=== PATIENT | female | born 1985 | race Caucasian/White ===

== ENCOUNTER 2019-03-28 01:22 | Inpatient (IN) | payer BC, OTHER ==
[2019-03-28] MEDS ORDERED: Lactated Ringers 1000 ML Bag* 1,000 ML IV ONE (02:04)
[2019-03-28] MEDS ORDERED: Buffered Lidocaine 1% SYRIN* 1 ML/SYRINGE INTRADERM ONE (02:04)
--- NOTE | 2019-03-28 02:12 | HP ---
General Information - Reason for Visit active labor - General Information Maternal Age: 31 Grav: 3 Para: 0 SAB: 2 IEA: 0 Estimated Due Date: 04/07/19 Determined By: LMP Gestational Age in Weeks/Days: 38 4/7 Maternal Blood Type and Rh: A Positive - Results this Serology/RPR Result: Non-Reactive Rubella Result: Immune HBsAg Result: Negative HIV Result: Negative GBS Culture Result: Positive Past Medical History Delivery History: Hx Uncomplicated Vaginal Delivery Pertinent Past Medical History: See Records - migraine, allergies, Lyme disease Pertinent Past Surgical History: See Records - D&C Pertinent Family History: Non-Contributory - Antepartal Records Antepartal Records: Reviewed, Uncomplicated Review of Systems Constitutional: Uncomfortable CV Complaint: No Respiratory: Shortness of Breath: No Gastrointestinal: Normal Bowel Movement, Nausea Genitourinary: No Dysuria, No Bleeding, No Leaking Fluid Musculoskeletal: No Epigastric Pain, Contractions Neurological: No Headache, No Visual Changes Movement: Normal Exam Allergies/Adverse Reactions: Allergies No Known Allergies Allergy (Verified 03/28/19 01:39) T-98.2, P-88, R-19, )2- 100%, BP- 118/63 - Measurements Height: 5 ft 7 in Weight: 86.183 kg Body Mass Index (BMI): 29.7 Pre- Weight: 61.235 kg - Exam Breast: Breast Exam Deferred CVA: No CVA Tenderness Extremities: No Edema Heart: Normal Rhythm/Heart Sounds HEENT: No Significant Findings Lungs: Clear Bilaterally Rectal: Rectal Exam Deferred Reflexes: DTR 2+ Thyroid: No Thyromegaly - Abdominal Exam Abdomen Exam: Non-Tender, Fundal Height Consistent with Dates - Ultrasound/Biophysical Profile Ultrasound Status: Not Done Targeted Exam Findings See L&D Outpatient Visit Provider Note for Findings: N/A Estimated Weight: 7.5# Cervical Exam: 5cm, 6cm - 5-6 cm per Sherly WILKS Presenting Part: Vertex Membrane Status: Intact Bleeding/Discharge: None EFM Findings - External Monitor Findings Baseline Heart Rate: 130 External Monitor Findings: Accelerations Present, No Pattern of Variable or Late Decelerations, Variability Moderate, Baseline Stable Contractions: Regular, Strong, 45-90 Seconds Contraction Frequency: 2-3 Assessment/Plan - Assessment 33 year old at 38 4/7 weeks gestation in active labor, GBS positive, no evidence of acidemia. - Obstetrical Risk Factors Obstetrical Risk Factors: GBS Positive - Plan Plan: Admit - Anticipate Vaginal Delivery - Date/Time of Admission Date of Admission: 03/28/19 Time of Admission: 01:22
[2019-03-28] MEDS ORDERED: Penicillin G Potassium IV* 5,000,000 UNITS in NS 0.9% 100 ML* 100 ML IVPB ONE (02:30)
[2019-03-28 02:35] LABS: ABS Basophils 0.1 10^3/ul (0-0.2); ABS Lymphocytes 1.8 10^3/ul (1.0-4.8); ABS Monocytes 0.7 10^3/ul (0-0.8); ABS Neutrophils 10.5 10^3/ul (1.5-7.7); Eosinophil % 0.2 %; Hematocrit 39 % (35-47); Hemoglobin 13.8 g/dL (12.0-16.0); Mean Corpuscular HGB Conc 35 g/dL (31-36); Mean Corpuscular Hemoglobin 31 pg (27-31); Mean Corpuscular Volume 88 fL (80-97); Mean Platelet Volume 7.9 fL (7.4-10.4); Nucleated Red Blood Cells % 0.1; Platelet Count 281 10^3/uL (150-450); Red Blood Count 4.42 10^6 /uL (3.70-4.87); Red Cell Distribution Width 13 % (10.5-15); White Blood Count 13.1 10^3/uL (3.5-10.8)
[2019-03-28] MEDS ORDERED: Lactated Ringers 1000 ML Bag* 1,000 ML IV SCH ×2 (03:00→09:00)
[2019-03-28] MEDS ORDERED: Oxytocin in LR* 20 UNITS/1,000 ML BAG IVPB ONE (06:24)
[2019-03-28] MEDS ORDERED: Penicillin G Potassium IV* 2,500,000 UNITS in NS 0.9% 100 ML* 100 ML IVPB SCH (06:30)
--- NOTE | 2019-03-28 07:58 | PROCNOTE ---
[facility] OB: Delivery Note - Delivery A Date of : 03/28/19 Time of : 06:41 [place] Sex: Female Score 1 Minute: 9 Score 5 Minutes: 9 Gestational Age in Weeks and Days at Delivery: 38 Weeks and 4 Days Delivery Method: Spontaneous Vaginal Labor: Spontaneous Did Patient attempt ?: N/A, No Previous Amniotic Fluid: Clear Estimated Blood Loss: 300 Anesthesia/Analgesia: None Delivered By: Shagufta Torres - Nursery Level of Nursery: Regular/Bedside - Perineum Perineal Injury: 1st Degree Perineal Repair: By Delivering Practioner - Events Delivery Events of Note: Pitocin Only After Delivery - Risk for Falls Other Risk for Falls: none - Additional Delivery Notes Additional Delivery Notes: Pt arrived in active labor. After initial reactive NST, she received intermittent monitoring. She utilized position changes, breathing techniques and hydrotherapy for pain relief. She made steady progress to full dilation and began spontaneous pushing efforts in hands and knees position on the bed. SROM soon occurred to clear fluid. Pt soon brought to [facility] and was coached through slow, controlled of the head. Shoulders followed easily, and passed between mother's legs to her chest. Pt supported to turn onto back while holding infant. After cord pulsation ceased, cord clamped x2 and cut by 's father. Gentle traction on the umbilical cord resulted in sensation of cord tearing partially. Placenta was close to introitus, and so was able to grasp it with two fingers and encourage pt to push, which resulted in expulsion of placenta. Velamentous insertion of cord noted on examination. Perineum sustained first degree laceration, repaired with 2-0 rapide suture with good hemostasis and tissue approximation. Mother and baby , stable, anticipate .
[2019-03-28] MEDS ORDERED: Witch Hazel PAD* JAR TOPICAL PRN (08:20)
[2019-03-28] MEDS ORDERED: Acetaminophen TAB* 325 MG PO PRN (08:20)
[2019-03-28] MEDS ORDERED: Glycerin ADULT SUPP PR PRN (08:20)
[2019-03-28] MEDS ORDERED: Dibucaine 1% 28.35 GM TUBE PR PRN (08:20)
[2019-03-28] MEDS: Docusate CAP* 100 MG PO SCH ×3 (08:42→22:11)
[2019-03-28] MEDS ORDERED: Oxytocin in LR* 20 UNITS/1,000 ML BAG IVPB SCH (09:00)
[2019-03-28] MEDS: Ibuprofen TAB* 600 MG PO PRN ×2 (12:15→18:06)
[2019-03-28] MEDS ORDERED: Lidocaine 1% INJ* 10 MG/ML 30 ML SDV ONE (13:45)
[2019-03-29 07:27] LABS: ABS Basophils 0.1 10^3/ul (0-0.2); ABS Eosinophils 0.1 10^3/ul (0-0.6); ABS Lymphocytes 2.2 10^3/ul (1.0-4.8); ABS Monocytes 0.8 10^3/ul (0-0.8); Eosinophil % 0.7 %; Hematocrit 29 % (35-47); Lymphocyte % 18.4 %; Mean Corpuscular HGB Conc 34 g/dL (31-36); Mean Corpuscular Hemoglobin 30 pg (27-31); Mean Corpuscular Volume 90 fL (80-97); Mean Platelet Volume 7.5 fL (7.4-10.4); Platelet Count 206 10^3/uL (150-450); Red Blood Count 3.29 10^6 /uL (3.70-4.87); Red Cell Distribution Width 13 % (10.5-15); White Blood Count 12.1 10^3/uL (3.5-10.8)
[2019-03-29] MEDS: Ibuprofen TAB* 600 MG PO PRN ×3 (08:04→20:46)
[2019-03-29] MEDS: Ferrous Gluconate TAB* 324 MG TAB PO SCH ×2 (08:04→20:46)
[2019-03-29] MEDS: Docusate CAP* 100 MG PO SCH ×3 (08:04→20:46)
[2019-03-30] MEDS: Docusate CAP* 100 MG PO SCH (09:13)
[2019-03-30] MEDS: Ibuprofen TAB* 600 MG PO PRN (09:14)
[2019-03-30] MEDS: Ferrous Gluconate TAB* 324 MG TAB PO SCH (09:14)
[2019-03-30 11:01] VITALS: BP 93/57
== END 2019-03-30 15:02 | disposition home or self-care (01) | DRG 807 ==
LOC: MCHOBOUT 01:22 → MCHOB 01:52
PROVIDERS: ADMIT Midwife; ATTEND Midwife
PROC: 10E0XZZ Delivery of Products of Conception, External Approach (ICD-10-PCS; principal; 2019-03-28)
PROC: 0HQ9XZZ Repair Perineum Skin, External Approach (ICD-10-PCS; 2019-03-28)
DX: O99.824 Streptococcus B carrier state complicating childbirth (principal); Z37.0 Single live birth; O70.0 First degree perineal laceration during delivery; Z3A.38 38 weeks gestation of pregnancy
CPT/HCPCS: 36415; 85025; 86850; 86900; 86901; A9270-GY; J2540

== ENCOUNTER 2019-09-16 10:17 | Emergency (ER) | payer BC ==
--- OUTSIDE RECORDS SUMMARY | 2019-09-16 10:52 | XMS REPORT | Continuity of Care Document ---
:1985 External Reference #:[id number] Author Name TASH Navas (transmitted by agent of provider Marietta Zafar) Address [address] [place] [address] Care Team Providers Name Role Phone Cindi Azevedo NP - Family Care Team Information Rotary Bar Operator [phone] Problems Active Problems Provider Date Acute atopic conjunctivitis Brian Fong MD Onset: 08/09/2019 Allergic rhinitis Brian Fong MD Onset: 08/09/2019 Allergic rhinitis due to pollen Brian Fong MD Onset: 08/09/2019 Social History Type Date Description Comments Sex Unknown Tobacco Use Start: Unknown Patient has never smoked Smoking Status Reviewed: 08/09/19 Patient has never smoked Allergies, Adverse Reactions, Alerts Active Allergies Reaction Severity Comments Date Erythromycin 08/09/2019 Medications Active Medications SIG Qnty Indications Ordering Provider Date Flonase Allergy 2 puffs each 9.900ml J30.1 Jimmyopher ATheresa 08/09/2019 Relief nostril every MD Ajit 50mcg/Act day Suspension Zyrtec Allergy one tablet by 30tabs J30.1 Jimmyopher A. 08/09/2019 10mg mouth every day MD Ajit Tablets as needed Dha Unknown 200mg Capsules Adult Unknown Gummy/Dha/Folic Acid 0.4-25mg Chewtabs Immunizations Description No Information Available Vital Signs Date Vital Result Comment 09/04/2019 9:49am BP Systolic 110 mmHg BP Diastolic 68 mmHg Height 66 inches 5'6" Weight 159.00 lb BMI (Body Mass Index) 25.7 kg/m2 Heart Rate 79 /min Respiratory Rate 18 /min O2 % BldC Oximetry 98 % 08/09/2019 9:19am Height 66 inches 5'6" Weight 159.00 lb BMI (Body Mass Index) 25.7 kg/m2 Respiratory Rate 16 /min Results Description No Information Available Procedures Date Code Description Status 08/09/2019 48179 Allergy Tests Percutaneous W/ Allergenic Extracts Completed Medical Devices Description No Information Available Encounters Type Date Location Provider Dx Diagnosis Office Visit 08/09/2019 [place] Brian Fong, J30.1 Allergic rhinitis 9:00a MD due to pollen J30.89 Other allergic rhinitis H10.13 Acute atopic conjunctivitis, bilateral Assessments Date Code Description Provider 08/09/2019 J30.1 Allergic rhinitis due to pollen Brian Fong MD 08/09/2019 J30.89 Other allergic rhinitis Brian Fong MD 08/09/2019 H10.13 Acute atopic conjunctivitis, bilateral Brian Fong MD Plan of Treatment No Information Available Functional Status Description No Information Available Mental Status Description No Information Available Referrals Description No Information Available
--- OUTSIDE RECORDS SUMMARY | 2019-09-16 10:52 | XMS REPORT | Continuity of Care Document ---
:1985 External Reference #:[id number] Author Name Leighton Vivas MD (transmitted by agent of provider Bing Grant) Address [address] [place] [address] Care Team Providers Name Role Phone Rosalinda Mccurdy MD - Internal Care Team Information Water Resource Specialist [phone] Medicine Edmund Guadalupe MD - Care Team Information Water Resource Specialist [phone] Ophthalmology Problems Active Problems Provider Date Seasonal allergic rhinitis Quinten Lema M.D.,FACP Onset: 08/14/2015 Social History Type Date Description Comments Sex Unknown ETOH Use Drinks Alcoholic Beverages Rarely Tobacco Use Start: Unknown Patient has never smoked Recreational Drug Use Denies Drug Use Smoking Status Reviewed: 08/21/19 Patient has never smoked Exercise Type/Frequency Exercises regularly 3 days weekly - hiking, walking, yoga, teri Allergies, Adverse Reactions, Alerts Active Allergies Reaction Severity Comments Date Erythromycin eye swelling 02/28/2017 Inactive Allergies NKDA 02/28/2017 Medications Active Medications SIG Qnty Indications Ordering Provider Date Dha daily Unknown 200mg Capsules Complete 1 by mouth every Unknown day 14-0.4mg Tablets Fluticasone Propionate 2 sprays each Unknown nostril qd. 50mcg/Act Suspension Zyrtec Allergy take one tablet Unknown 10mg by mouth as Capsules needed Immunizations CPT Code Status Date Vaccine Lot # [id number] Given 10/27/2017 Influenza Virus Vaccine, Quadrivalent, Split, Preservative Free [id number] Given 09/24/2014 Flu Vaccine Split Virus Preservative Free For Indiv [id number] Older Vital Signs Date Vital Result Comment 08/21/2019 8:32am Height 67.5 inches 5'7.50" Heart Rate 70 /min BP Systolic Sitting 112 mmHg BP Diastolic Sitting 64 mmHg 12/11/2018 10:02am Height 67.5 inches 5'7.50" Weight 155.00 lb Heart Rate 90 /min BP Systolic 110 mmHg BP Diastolic 65 mmHg Body Temperature 97.3 F O2 % BldC Oximetry 99 % BMI (Body Mass Index) 23.9 kg/m2 Results Description No Information Available Procedures Description No Information Available Medical Devices Description No Information Available Encounters Description No Information Available Assessments Date Code Description Provider 08/21/2019 E04.2 Nontoxic multinodular goiter Leighton Vivas MD Plan of Treatment 08/21/2019 - Leighton Vivas MDE04.2 Nontoxic multinodular goiterInstructions:1. Return in 1 year for a follow-up visit and ultrasound. 2. Blood tests today. Functional Status Description No Information Available Mental Status Description No Information Available Referrals Description No Information Available
--- OUTSIDE RECORDS SUMMARY | 2019-09-16 10:52 | XMS REPORT | Continuity of Care Document ---
:1985 External Reference #:[id number] Author Name Brian Fong MD (transmitted by agent of provider Shelbie Couch) Address [address] [facility] [address] [place] [address] Care Team Providers Name Role Phone Cindi Azevedo NP - Family Care Team Information Enterprise Integration Developer [phone] Problems Description No Information Available Social History Type Date Description Comments Sex Unknown Tobacco Use Start: Unknown Patient has never smoked Allergies, Adverse Reactions, Alerts Active Allergies Reaction Severity Comments Date Erythromycin 08/09/2019 Medications Active Medications SIG Qnty Indications Ordering Provider Date Dha 200mg Unknown Capsules Adult Gummy/Dha/Folic Acid Unknown 0.4-25mg Chewtabs Immunizations Description No Information Available Vital Signs Date Vital Result Comment 08/09/2019 9:19am Height 66 inches 5'6" Weight 159.00 lb BMI (Body Mass Index) 25.7 kg/m2 Respiratory Rate 16 /min Results Description No Information Available Procedures Description No Information Available Medical Devices Description No Information Available Encounters Description No Information Available Assessments Description No Information Available Plan of Treatment No Information Available Functional Status Description No Information Available Mental Status Description No Information Available Referrals Description No Information Available
--- OUTSIDE RECORDS SUMMARY | 2019-09-16 10:52 | XMS REPORT | Continuity of Care Document ---
:1985 External Reference #:[id number] Author Name Brian Fong MD Address [address] [facility] [address] [place] [address] Care Team Providers Name Role Phone Cindi Azevedo NP - Family Care Team Information General Manager Land Department [phone] Problems Active Problems Provider Date Acute atopic [...] Flonase Allergy 2 puffs each 9.900ml J30.1 Brian Pop 08/09/2019 Relief nostril every MD Ajit 50mcg/Act day Suspension Zyrtec Allergy one tablet by 30tabs J30.1 Brian ATheresa 08/09/2019 10mg mouth every day MD Ajit Tablets as needed Dha Unknown 200mg Capsules Adult Unknown Gummy/Dha/Folic Acid 0.4-25mg Chewtabs Immunizations Description No Information Available Vital Signs Date Vital Result Comment 08/09/2019 9:19am Height 66 inches 5'6" Weight 159.00 lb BMI (Body Mass Index) 25.7 kg/m2 Respiratory Rate 16 /min Results Test Date Facility Test Result H/L Range Note Laboratory test 08/09/2019 [facility] <pending> finding [address] [place] [address] [phone] Order 08/09/2019 [facility] Blood Collection < pending> via Venipuncture Skin Test Seasonal and Environmental <pending> Procedures Date Code Description Status 08/09/2019 89786 Allergy Tests Percutaneous W/ Allergenic Extracts Completed Medical Devices Description No Information Available Encounters Description No Information Available Assessments Date Code Description Provider 08/09/2019 J30.1 Allergic rhinitis due to pollen Brian Fong MD 08/09/2019 J30.89 Other allergic rhinitis Brian Fong MD 08/09/2019 H10.13 Acute atopic conjunctivitis, bilateral Brian Fong MD Plan of Treatment No Information Available Functional Status Description No Information Available Mental Status Description No Information Available Referrals Description No Information Available
--- OUTSIDE RECORDS SUMMARY | 2019-09-16 10:52 | XMS REPORT | Continuity of Care Document ---
:1985 External Reference #:[id number] Author Name TASH Navas (transmitted by agent of provider Brian Fong) Address [address] [facility] [place] [address] Care Team Providers Name Role Phone Cindi Azevedo NP - Family Care Team Information Line O Scribe Operator [phone] Problems Active Problems Provider Date Acute atopic conjunctivitis Brian Fong MD Onset: 08/09/2019 Allergic rhinitis Brian Fong MD Onset: 08/09/2019 Allergic rhinitis due to pollen Brian Fong MD Onset: 08/09/2019 Social History Type Date Description Comments Sex Unknown Tobacco Use Start: Unknown Patient has never smoked Smoking Status Reviewed: 09/04/19 Patient has never smoked Allergies, Adverse Reactions, [...] Available Procedures Date Code Description Status 08/09/2019 66813 Allergy Tests Percutaneous W/ Allergenic Extracts Completed Medical Devices Description No Information Available Encounters Type Date Location Provider Dx Diagnosis Office Visit 09/04/2019 9:30a TASH Roman J30.1 Allergic rhinitis due to pollen J30.89 Other allergic rhinitis H10.13 Acute atopic conjunctivitis, bilateral Office Visit 08/09/2019 9:00a Hayden Fong J30.1 Allergic rhinitis MD due to pollen J30.89 Other allergic rhinitis H10.13 Acute atopic conjunctivitis, bilateral Assessments Date Code Description Provider 09/04/2019 J30.1 Allergic rhinitis due to pollen TASH Navas 09/04/2019 J30.89 Other allergic rhinitis TASH Navas 09/04/2019 H10.13 Acute atopic conjunctivitis, bilateral TASH Navas 08/09/2019 J30.1 Allergic rhinitis due to pollen Brian Fong MD 08/09/2019 J30.89 Other allergic rhinitis Brian Fong MD 08/09/2019 H10.13 Acute atopic conjunctivitis, bilateral Brian Fong MD Plan of Treatment 09/04/2019 - TASH NavasJ30.1 Allergic rhinitis due to pollenComments:Patient 's environmental skin test showed 3+ positive to ragweed and 2+ positive to all other allergens tested. Patient's total IgE is 23.5 kU/l. Patient to continue Flonase, as needed, for prophylaxis of her nose and Zyrtec for breakthrough nasal symptoms. Environmental controls discussed includingdust mite proof pillow case and mattress covers. Saline nasal rinse and HEPA air filter may help decrease allergens. Patient is not interested in allergen immunotherapy injections at this time.Follow up:one year, sooner if [id number] Other allergic fqvgoleqN15.13 Acute atopic conjunctivitis, bilateral Functional Status Description No Information Available Mental Status Description No Information Available Referrals Description No Information Available
[2019-09-16] MEDS ORDERED: NS 0.9% 1000 ML** 1,000 ML IV ONE (11:10)
[2019-09-16] MEDS ORDERED: Penicillin G Benzathine 1.2MU* 1,200,000 UNITS/2 ML SYR IM ONE (11:13)
--- NOTE | 2019-09-16 11:16 | UC ---
Throat Pain/Nasal Arley HPI - HPI Summary HPI Summary: 34-year-old female with a sore throat since yesterday and feels like she's had fever but she has not taken her temperature at home. She has vomited approximate 6 times since last evening. She is also breast-feeding. - History of Current Complaint Chief Complaint: UCRespiratory Stated Complaint: SORE THROAT Time Seen by Provider: 09/16/19 10:37 Hx Obtained From: Patient Hx Last Menstrual Period: pt had a baby 5 months ago, no period yet ?: No - patient is breast-feeding Onset/Duration: Gradual Onset, Lasting Hours Severity: Moderate Pain Intensity: 9 Cough: None Associated Signs & Symptoms: Positive: Fever - Fever and chills although she has not taken her temperature at home. - Allergies/Home Medications Allergies/Adverse Reactions: Allergies Allergy/AdvReac Type Severity Reaction Status Date / Time erythromycin base Allergy Swelling Verified 09/16/19 10:57 Home Medications: Home Medications Fluticasone NASAL SPRAY 50MCG* [Flonase NASAL SPRAY 50MCG*] 1 spray INH DAILY [History Confirmed 09/16/19] Ibuprofen TAB* [Motrin TAB* 600 MG] 200 mg PO Q6H PRN 09/16/19 [History Confirmed 09/16/19] [place]ke Cough Childrens 1 dose PO ONCE PRN 09/16/19 [History Confirmed 09/16/19] PMH/Surg Hx/FS Hx/Imm Hx Previously Healthy: Yes - Surgical History Surgical History: Yes Surgery Procedure, Year, and Place: D&C - Family History Known Family History: Positive: Non-Contributory - Social History Lives: With Family Alcohol Use: Occasionally Substance Use Type: None Smoking Status (MU): Never Smoked Tobacco Have You Smoked in the Last Year: No - Immunization History Most Recent Influenza Vaccination: 08/19/2016 Most Recent Tetanus Shot: 06/15/16 Most Recent Pneumonia Vaccination: never Review of Systems All Other Systems Reviewed And Are Negative: Yes Constitutional: Positive: Fever, Chills ENT: Positive: Sore Throat, Ear Ache Is Patient Immunocompromised?: No Physical Exam - Summary Physical Exam Summary: 5 months and breast-feeding Appearance: No Pain Distress, Well-Nourished, Ill-Appearing Vital Signs: Initial Vital Signs Temp 98.2 F 09/16/19 10:50 Pulse 112 09/16/19 10:50 Resp 18 09/16/19 10:50 BP 100/65 09/16/19 10:50 Pulse Ox 100 09/16/19 10:50 Vital Signs Reviewed: Yes Eye Exam: Normal Eyes: Positive: Conjunctiva Clear ENT: Positive: Pharyngeal erythema, TMs normal, Tonsillar swelling, Tonsillar exudate, Uvula midline. Negative: Trismus, Muffled voice, Hoarse voice Neck: Positive: Supple, Nontender, Enlarged Nodes @ - Bilateral tonsillar lymph node enlargement the right greater than the left. Respiratory: Positive: Lungs clear, Normal breath sounds, No respiratory distress, No accessory muscle use Cardiovascular: Positive: No Murmur, Pulses Normal, Brisk Capillary Refill, Tachycardia Abdomen Description: Positive: Nontender, No Organomegaly, Soft. Negative: CVA Tenderness (R), CVA Tenderness (L), Distended, Guarding, Hepatomegaly, McBurney' s Point Tenderness, Splenomegaly Bowel Sounds: Positive: Present Musculoskeletal Exam: Normal Neurological Exam: Normal Psychological Exam: Normal Skin Exam: Normal Re-Evaluation - Re-Evaluation Second Eval Change: Improved - Patient is feeling much better, less nauseous. Pulse rate is mildly decreased to 109. She appears better. Because she is driving herself I'm going to do a "road test" and see how she ambulates. Throat Pain/Nasal Course/Dx - Course Course Of Treatment: Rapid strep test positive The patient will receive 1 L of normal saline here as well as 1.2 million units IM benzathine penicillin. I think because she has vomited 6 times since last evening and she is breast-feeding she is mildly dehydrated. At this point in time I don't feel she needs the emergency room. After 1 L of fluid she walked in the department and appeared much better. She states she is feeling better. She is mildly nauseous after having some vitaly jordan and retaining it so Zofran 4 mg sublingual was given. I did have her call her to come and pick her up rather than her driving approximately 20 minutes home. Vital signs remained stable however she is still mildly tachycardic but she's feeling a lot better and her color has improved. - Differential Dx/Diagnosis Provider Diagnosis: Strep pharyngitis, Dehydration Discharge ED - Sign-Out/Discharge Documenting (check all that apply): Patient Departure All imaging exams completed and their final reports reviewed: No Studies - Discharge Plan Condition: Fair Disposition: HOME Prescriptions: Ondansetron ODT TAB* [Zofran 4 MG Odt TAB*] 4 mg PO Q8H PRN #10 tab.odt PRN Reason: Nausea Patient Education Materials: Strep Throat (DC) Referrals: Cindi Azevedo KETTLE ROOM HELPER [Primary Care Provider] - Additional Instructions: Go home and rest. Tylenol every 4 hours as needed for fever. Increase fluids today. Avoid spicy and fatty foods for today. Start with water, vitaly jordan juice and gradually progress to chicken noodle soup, crackers soup broth Jell- O. If you continue vomiting to the point where you're feeling lightheaded then go to the emergency room for further treatment. Follow-up with your primary care provider if no improvement in 2 or 3 days. The injection of benzathine penicillin 1.2 million units today is the complete treatment for your strep pharyngitis. Change your toothbrush in 24 hours. If you are unable to open your mouth or you start drooling and cannot swallow your saliva then you are to go to the emergency room immediately. - Billing Disposition and Condition Condition: FAIR Disposition: Home
[2019-09-16] MEDS ORDERED: Ondansetron ODT TAB* 4 MG SL ONE (12:50)
[2019-09-16 12:58] VITALS: BP 111/64
== END 2019-09-16 12:55 | disposition home or self-care (01) ==
LOC: UCEAST 10:17
DX: E86.0 Dehydration (principal); J02.0 Streptococcal pharyngitis; Z88.1 Allergy status to other antibiotic agents
CPT/HCPCS: 87651; 96360; 96372; 99212; A9270-GY; G0463; J0558

== ENCOUNTER 2022-02-22 15:45 | Inpatient (IN) ==
[2022-02-22 17:30] LABS: ABS Basophils 0.1 10^3/ul (0-0.2); ABS Lymphocytes 1.5 10^3/ul (1.0-4.8); ABS Monocytes 0.3 10^3/ul (0-0.8); ABS Neutrophils 3.8 10^3/ul (1.5-7.7); Eosinophil % 0.6 %; Hematocrit 32 % (35-47); Hemoglobin 11.5 g/dL (12.0-16.0); Lymphocyte % 26.5 %; Mean Corpuscular HGB Conc 36 g/dL (31-36); Mean Corpuscular Hemoglobin 30 pg (27-31); Mean Corpuscular Volume 85 fL (80-97); Mean Platelet Volume 7.2 fL (7.4-10.4); Nucleated Red Blood Cells % 0.2; Platelet Count 295 10^3/uL (150-450); Red Cell Distribution Width 12 % (10-15); White Blood Count 5.8 10^3/uL (3.5-10.8)
[2022-02-22 17:32] LABS: Urine Appearance Clear; Urine Bilirubin Negative (Negative); Urine Blood 1+ (Negative); Urine Color Colorless; Urine Glucose Negative (Negative); Urine Ketones Negative (Negative); Urine Nitrite Negative (Negative); Urine Protein Negative (Negative); Urine Specific Gravity 1.001 (1.002-1.030); Urine Urobilinogen Negative (Negative)
[2022-02-22 17:39] LABS: Urine Bacteria 1+ (Absent); Urine Red Blood Cell Trace(0-2/hpf) (Absent); Urine Squamous Epithelial Cell Present (Absent); Urine White Blood Cell Absent (Absent)
[2022-02-22 17:50] LABS: ALT 7 U/L (7-52); AST 11 U/L (13-39); Albumin 4.5 g/dL (3.2-5.2); Albumin/Globulin Ratio 1.6 (1-3); Alkaline Phosphatase 33 U/L (35-149); Anion Gap 5 mmol/L (2-11); Blood Urea Nitrogen 12 mg/dL (6-24); C Reactive Protein 7.06 mg/L (<8.01); CO2 Carbon Dioxide 31 mmol/L (22-32); Calcium 9.2 mg/dL (8.6-10.3); Chloride 104 mmol/L (101-111); Globulin 2.9 g/dL (2-4); Glucose 92 mg/dL (70-100); Potassium 4.1 mmol/L (3.5-5.0); Sodium 140 mmol/L (135-145); Total Protein 7.4 g/dL (6.4-8.9); eGFR CKD-EPI 95.8 (>60)
[2022-02-22 17:54] LABS: HCG Pregnancy < 0.60 mIU/mL
[2022-02-22 19:04] LABS: Lipase 1278 U/L (11.0-82.0)
[2022-02-22 21:01] LABS: Cholesterol 129 mg/dL; HDL Cholesterol 46.7 mg/dL; LDL Cholesterol 72 mg/dL; Triglycerides 54 mg/dL
[2022-02-22] MEDS: NS 0.9% 1000 ml BAG 1,000 ML IV SCH (22:29)
[2022-02-23] MEDS: NS 0.9% 1000 ml BAG 1,000 ML IV SCH ×2 (03:17→08:20)
[2022-02-23 06:28] LABS: ABS Eosinophils 0.1 10^3/ul (0-0.6); ABS Lymphocytes 1.6 10^3/ul (1.0-4.8); ABS Monocytes 0.3 10^3/ul (0-0.8); ABS Neutrophils 2.2 10^3/ul (1.5-7.7); Eosinophil % 1.3 %; Hematocrit 31 % (35-47); Hemoglobin 10.8 g/dL (12.0-16.0); Lymphocyte % 37.5 %; Mean Corpuscular HGB Conc 35 g/dL (31-36); Mean Corpuscular Hemoglobin 30 pg (27-31); Mean Corpuscular Volume 87 fL (80-97); Mean Platelet Volume 7.1 fL (7.4-10.4); Platelet Count 247 10^3/uL (150-450); Red Blood Count 3.58 10^6 /uL (3.70-4.87); Red Cell Distribution Width 12 % (10-15); White Blood Count 4.3 10^3/uL (3.5-10.8)
[2022-02-23 07:03] LABS: C Reactive Protein 5.66 mg/L (<8.01); Calcium 8.1 mg/dL (8.6-10.3); Potassium 3.8 mmol/L (3.5-5.0); eGFR CKD-EPI 119.5 (>60)
[2022-02-23 07:56] LABS: Erythrocyte Sed Rate 26 mm/Hr (0-19)
[2022-02-24 06:40] LABS: ABS Eosinophils 0.1 10^3/ul (0-0.6); ABS Lymphocytes 1.5 10^3/ul (1.0-4.8); ABS Monocytes 0.4 10^3/ul (0-0.8); ABS Neutrophils 2.4 10^3/ul (1.5-7.7); Eosinophil % 1.4 %; Hematocrit 32 % (35-47); Hemoglobin 11.3 g/dL (12.0-16.0); Lymphocyte % 34.9 %; Mean Corpuscular HGB Conc 36 g/dL (31-36); Mean Corpuscular Hemoglobin 31 pg (27-31); Mean Corpuscular Volume 87 fL (80-97); Mean Platelet Volume 7.5 fL (7.4-10.4); Nucleated Red Blood Cells % 0.1; Platelet Count 249 10^3/uL (150-450); Red Cell Distribution Width 12 % (10-15); White Blood Count 4.4 10^3/uL (3.5-10.8)
[2022-02-24 06:52] LABS: Albumin 3.7 g/dL (3.2-5.2); Albumin/Globulin Ratio 1.4 (1-3); Calcium 8.6 mg/dL (8.6-10.3); Globulin 2.6 g/dL (2-4); Potassium 4.3 mmol/L (3.5-5.0); Total Bilirubin 1.1 mg/dL (0.2-1.0); Total Protein 6.3 g/dL (6.4-8.9); eGFR CKD-EPI 116.2 (>60)
[2022-02-24 14:51] VITALS: BP 95/56
== END 2022-02-24 16:35 | disposition home or self-care (01) | DRG 282 ==
LOC: ED 15:45 → SUATTDRO 21:07 → EDHOLD 21:07 → MED 22:26
PROVIDERS: ADMIT Internal Medicine; ATTEND Student in an Organized Health Care Education/Training Program

== ENCOUNTER 2022-04-04 11:58 | Observation (INO) ==
[~2022-04-04 11:58] MED LIST: Buffered Lidocaine 1% SYRIN 1 ml INTRADERM ONE; Lactated Ringers 1000 ml BAG 1,000 ML IV SCH
[2022-04-04] MEDS ORDERED: ceFAZolin 2 GM in NS PREMIX 2 GM/100 ML BAG IVPB ONE (12:24)
[2022-04-04] MEDS ORDERED: Lidocaine 1% w EPI 1:200,000 SDV 30 ML VIAL ONE (13:13)
[2022-04-04] MEDS ORDERED: Propofol 10 MG/ML 20 ML BTL ONE (13:25)
[2022-04-04] MEDS ORDERED: Metoclopramide 5 MG/ML VIAL (10 mg) ONE (13:25)
[2022-04-04] MEDS ORDERED: Ondansetron 4 mg VIAL 2 MG/ML 2 ml VIAL ONE ×2 (13:25→17:01)
[2022-04-04] MEDS ORDERED: fentaNYL 100 mcg/2 ml 50 MCG/ML VIAL ONE ×2 (13:26→15:15)
[2022-04-04] MEDS ORDERED: Midazolam 2 mg/2 ml VIAL 1 mg/ml 2 ml VIAL (2 mg) ONE (13:26)
[2022-04-04] MEDS ORDERED: Rocuronium 50 mg VIAL 10 mg/ml 5 ml VIAL (50 mg) ONE (14:23)
[2022-04-04] MEDS ORDERED: Naloxone 0.4 mg VIAL 0.4 mg/ml 1 ml VIAL IV PRN ×2 (14:47→15:17)
[2022-04-04] MEDS ORDERED: HYDROmorphone 1 MG/1 ML SYRINGE IV PRN (14:47)
[2022-04-04] MEDS ORDERED: Acetaminophen IV 1 GM/100ML 100 ML IV ONE ×2 (14:47→15:09)
[2022-04-04] MEDS ORDERED: oxyCODONE/Acetamin 5/325 mg TAB PO PRN (14:47)
[2022-04-04] MEDS ORDERED: Ondansetron 4 mg VIAL 2 MG/ML 2 ml VIAL IV PRN ×2 (14:47→15:17)
[2022-04-04] MEDS ORDERED: Prochlorperazine 5 mg/ml 2 ml VIAL (10 mg) IV PRN ×2 (14:47→15:24)
[2022-04-04] MEDS ORDERED: Scopolamine 1 mg/72hr PATCH ONE (14:55)
[2022-04-04] MEDS ORDERED: Dexamethasone IV 4 MG/ML VIAL 1 ml VIAL ONE (14:55)
[2022-04-04] MEDS ORDERED: HYDROmorphone 0.5 MG/0.5 ML SYRINGE ONE (15:06)
[2022-04-04] MEDS ORDERED: HYDROmorphone 1 MG/1 ML SYRINGE ONE (15:15)
[2022-04-04] MEDS ORDERED: fentaNYL 100 mcg/2 ml 50 MCG/ML VIAL IV PRN (15:17)
[2022-04-04] MEDS ORDERED: HYDROcodone/ACETAMIN 5/325 mg TAB PO PRN (15:22)
[2022-04-04] MEDS ORDERED: HYDROmorphone 0.5 MG/0.5 ML SYRINGE IV SLOW PU PRN (15:22)
[2022-04-04] MEDS ORDERED: Prochlorperazine 5 mg/ml 2 ml VIAL (10 mg) ONE (15:23)
[2022-04-04] MEDS ORDERED: Scopolamine 1 mg/72hr PATCH TRANSDERM SCH (16:00)
[2022-04-04] MEDS: Lactated Ringers 1000 ml BAG 1,000 ML IV SCH (17:04)
[2022-04-04] MEDS ORDERED: Fluticasone NASAL SPRAY 50MCG 16 gm SPRAY BTL INTRANASAL SCH (21:00)
[2022-04-05] MEDS: Acetaminophen IV 1 GM/100ML 100 ML IV PRN ×2 (00:05→06:35)
[2022-04-05] MEDS: Lactated Ringers 1000 ml BAG 1,000 ML IV SCH (01:20)
[2022-04-05 07:51] VITALS: BP 94/56
== END 2022-04-05 11:00 | disposition home or self-care (01) ==
LOC: OR 11:58 → SSU 11:58
PROVIDERS: ADMIT Surgery; ATTEND Surgery